=== PATIENT | female | born 1985 | race Caucasian/White ===

== ENCOUNTER 2020-11-08 19:35 | Emergency (ER) | payer SELFPAY ==
[2020-11-08 20:42] VITALS: BP 142/89; PULSE 95; RESP 18; TEMP 36.3; O2SAT 99; BMI 41.9
[2020-11-08 20:46] VITALS: PULSE 80; RESP 18; TEMP 36.3; O2SAT 99
--- NOTE | 2020-11-08 21:00 | W.ED.SKABFB ---
HPI - Skin/Abscess/Foreign Bdy General: Chief complaint: Skin/Abscess/Foreign Body Stated complaint: allergic rxn Time Seen by Provider: 11/08/20 20:48 History of Present Illness: HPI narrative: Patient is a 35-year-old female comes to the ED with right orbital swelling. Patient says she woke up this morning she had some mild swelling in her right upper and lower eyelids. Denies any eye pain or discharge. She then took some Benadryl later in the morning she went took a nap. When she woke up in the early afternoon her right eye was swollen shut. She reports having some pain more in the right eyelid and maxillary region of face is due to the swelling and tightness of the skin. She reports that yesterday she was out working in her yard and pulling up some weeds in was exposed to some poison hola. Denies any injury or trauma to face. Denies any change in lotions, detergents, soaps. Denies any new medications or eating something she has never had in the past. Associated symptoms: Deny chills, fever(s), nausea or vomiting Review of Systems Const: Denies: fever(s), chills or fatigue Eyes: Reports: other (Right periorbital swelling.); Denies: change in vision or eye discomfort ENMT: Denies: throat pain, odynophagia, nasal discharge or nasal congestion Card: Denies: chest pain, palpitations, edema, swelling of feet/ankles, dyspnea on exertion or orthopnea Resp: Denies: dyspnea, productive cough or non-productive cough GI: Denies: abdominal pain, nausea, vomiting, diarrhea, constipation or hematochezia : Denies: flank pain, dysuria or hematuria Musc: Denies: neck pain, back pain or extremity swelling Skin/Breast: Denies: rash or new lesions Neuro: Denies: headache(s), numbness in extremities or weakness in extremities Physical Exam Const: COMMON NORMALS: no acute distress, patient oriented x3 and alert GENERAL APPEARANCE: cooperative and comfortable HENMT: COMMON NORMALS: normocephalic HEAD & SCALP: normocephalic FACE & SINUS: edema on the right periorbital and maxilla MOUTH: Normal oral and palatal mucosa present THROAT: posterior oropharynx normal and uvula midline OTHER: Patient has right periorbital swelling with some edema as well in the maxillary region of face. No erythema or warmth noted. Neck/C-Spine: COMMON NORMALS: supple GENERAL: Yes normal visual inspection Resp: COMMON NORMALS: normal respiratory effort, No retractions, No use of accessory muscles and clear to auscultation bilaterally AUSCULTATION: clear to auscultation bilaterally Cardio: COMMON NORMALS: regular rate, regular rhythm, S1 normal heart sound present, S2 normal heart sound present, No gallops present (Cardio), No clicks present (Cardio), No murmurs present (Cardio) and Peripheral pulses 2+ throughout RATE: regular rate RHYTHM: regular rhythm HEART SOUNDS: S1 normal heart sound present and S2 normal heart sound present PERIPHERAL PULSES: Peripheral pulses 2+ throughout GI: COMMON NORMALS: Normal to inspection, nondistended, normoactive bowel sounds present, Soft to palpation, non-tender and no masses PALPATION: Yes Soft to palpation : COMMON NORMALS: Yes no CVA tenderness BLADDER/KIDNEY EXAM: Yes no CVA tenderness Back/Pelvis: COMMON NORMALS: no CVA tenderness Extremity: COMMON NORMALS: normal to inspection Neuro: COMMON NORMALS: patient oriented x3 and moves all extremities SENSORIUM/ORIENTATION: Yes alert Skin: GENERAL SKIN EXAM: dry skin Course Vital Signs: Vital signs: Vital Signs Temperature 97.3 F L 11/08/20 23:05 Pulse Rate 85 11/08/20 23:05 Respiratory Rate 18 11/08/20 23:05 Blood Pressure 135/76 11/08/20 23:05 Pulse Oximetry 99 11/08/20 23:05 MDM - Skin/Abscess/Foreign Bdy MDM Narrative: Medical decision making narrative: Patient is a 35-year-old female comes to the ED with right periorbital swelling. Patient said that yesterday she was working out in her yard pulling weeds and was exposed to some poison hola. She woke up with some swelling to her right eye and then it continued to get worse throughout the day. Patient was given a dose of Benadryl and Solu-Medrol while here in the ED. She started having some itching to right eye is while here in the ED. Swelling started to improve after meds. Patient was diagnosed with periorbital dermatitis likely caused by poison hola and discharged home on Medrol Dosepak and some Maxitrol eye ointment. Follow-up with PCP in 3 to 5 days for reevaluation. Return to ED precautions given. Patient understood agree with plan. Discharge Plan Discharge Patient Disposition: Home Clinical Impression: Periorbital dermatitis Condition: Stable Prescriptions: New Maxitrol 3.5 mg/g-10,000 unit/g-0.1 % ointment 1 applic ophthalmic (eye) Q8H 5 Days Qty: 3.5 RF: 0 methylprednisolone 4 mg tablets,dose pack See Rx Instructions .ROUTE .COMPLEX Qty: 21 RF: 0 Discharge Orders: Discharge ED (Routine); Ordered 11/08/20 Ordered By: Christian Mcpherson Discharge Diet: Regular Discharge Activity: Resume usual activity Patient Instructions: Contact Dermatitis (ED), Periorbital Edema Activity Restrictions/Additional Instructions: Follow-up with medical provider as directed in 3 to 5 days for reevaluation. Take medications as prescribed. Return to the ER or your medical provider if condition worsens. Please read and understand discharge instructions. Thank you for choosing [facility] for your healthcare needs today. Please realize this is an emergency room and that we are providing you with a medical screening exam and this may not be complete and all inclusive of all the testing and or work up that you may need to determine your ailment or severity of your illness. It is very important that you follow up as instructed or that you return to the Emergency Department should you have concerns or if your condition changes or worsens in any way. Stand Alone Forms: Work/School Release Coding Level of Care Code ED Hospital Administrator for Emilie Fwcole Exam Comprehensive
[2020-11-08] MEDS: diphenhydrAMINE 50 mg Capsule PO (21:18)
[2020-11-08 21:46] VITALS: PULSE 85; RESP 18; O2SAT 99
[2020-11-08 22:00] VITALS: BP 135/76; PULSE 85; RESP 18; TEMP 36.3; O2SAT 99
[2020-11-08 23:00] VITALS: BP 135/76; PULSE 85; RESP 18; TEMP 36.3; O2SAT 99
[2020-11-08] MEDS: neomycin-poly-dex Op oint 3.5 gm 1 APPLIC EYE-RIGHT (23:01)
[2020-11-08 23:05] VITALS: BP 135/76; PULSE 85; RESP 18; TEMP 36.3; O2SAT 99
== END 2020-11-08 23:06 | disposition home or self-care (01) ==
PROVIDERS: Emergency Provider Physician Assistant
DX: L30.8 Other specified dermatitis (principal)
CPT/HCPCS: 96372; 99283; J2930; Q0163

== ENCOUNTER 2020-11-09 10:35 | Inpatient (IN) | payer SELFPAY ==
[2020-11-09] VITALS (10 sets, daily range): BP systolic 105–139; BP diastolic 52–96; PULSE 66–87; RESP 16–18; TEMP 36.6–36.9; O2SAT 93–98; BMI 41.9
--- NOTE | 2020-11-09 11:04 | CTR_ITS ---
PROCEDURE INFORMATION: Exam: CT Maxillofacial With Contrast Exam date and time: 11/09/2020 11:04 AM Age: 35 years old Clinical indication: Mass, lump, or swelling; Maxilla; Additional info: R periorbital/facial swelling redness TECHNIQUE: Imaging protocol: Computed tomography images of the face with intravenous contrast. Radiation optimization: All CT scans at this facility use at least one of these dose optimization techniques: automated exposure control; mA and/or kV adjustment per patient size (includes targeted exams where dose is matched to clinical indication); or iterative reconstruction. Contrast material: OMNI 300; Contrast volume: 95 ml; Contrast route: INTRAVENOUS (IV); COMPARISON: No relevant prior studies available. RADIATION DOSE METRICS: Total DLP (mGy-cm): 784.78 FINDINGS: Orbital cavity: Severe right orbital preseptal inflammation/cellulitis with no obvious postseptal inflammation. Bones/joints: No acute fracture. Paranasal sinuses: Normal. No air-fluid levels. Soft tissues: Soft tissue swelling over the right cheek, orbit and forehead consistent with infectious process. CT/CT facial bones w con [id number] IMPRESSION: 1. Soft tissue swelling over the right cheek, orbit and forehead consistent with infectious process. 2. Severe right orbital preseptal inflammation/cellulitis with no obvious postseptal inflammation. Radiation Dose CTDIVOL = (mGy): DLP = 784.78 (mGy-cm)
--- NOTE | 2020-11-09 11:13 | ED_ITS ---
Documented by User: BELA Polanco 11/09/20 15:00 HPI - Skin/Abscess/Foreign Bdy General: Chief complaint: General Medical Stated complaint: r eye swelling/seen here yesterday Time Seen by Provider: 11/09/20 10:37 Source: patient Mode of arrival: ambulatory Limitations: no limitations History of Present Illness: HPI narrative: Patient is a 35-year-old female who presents to ED today with a complaint of right-sided facial swelling. Patient was seen here yesterday for same complaint and treated with steroids for concerns of plant dermatitis. Patient tells me when she woke up this morning she noticed her face was even more so swollen so decided to come back for re- evaluation. Patient states she has no known exposure to poison hola/oak/sumac but was pulling weeds in the garden. She states her right eye is swollen shut. She does not complain of severe periorbital pain and does not complain of much pain with EOMs. She does have eye discomfort stating it feels like her eyelashes are scratching her eye. She has not been running fever. Patient is not a diabetic. Onset (ago): day(s) Tetanus up to date: yes Location: face Severity: moderate Pain Consistency: constant Relieving factors: none Exacerbating factors: none Context: none Associated symptoms: Reports no associated symptoms; Deny chills, fever(s), nausea or vomiting Treatments prior to arrival: corticosteroid Review of Systems Const: Denies: fever(s), chills, body aches, change in appetite, change in weight, fatigue or malaise Eyes: Reports: other (R periorbital swelling; cannot open) ENMT: Denies: throat pain, odynophagia, mouth pain, swelling of lips/tongue, oral sores, dental pain, ear or mastoid pain, ear discharge, nasal discharge or nasal congestion Card: Denies: chest pain Resp: Denies: dyspnea GI: Denies: nausea or vomiting Musc: Denies: neck pain Skin/Breast: Denies: rash Neuro: Denies: headache(s), dizziness, confusion or Slurred speech present [facility] PFSH: Social History (Updated 11/09/20 @ 17:44 by Jacquelyn Amaya MD) Smoking and tobacco status: never smoked Alcohol intake: never Substance/Drug Use: never Physical Exam Const: COMMON NORMALS: no acute distress, patient oriented x3, no limitations and alert GENERAL APPEARANCE: cooperative NUTRITIONAL APPEARANCE: overweight ORIENTATION/CONSCIOUSNESS: Yes awake, Yes oriented to person, Yes oriented to place and Yes oriented to time HENMT: COMMON NORMALS: normocephalic, atraumatic, hearing grossly normal bilaterally, external ears normal, EAC's normal, TM's normal bilaterally, Normal external nose present, Normal nasal mucous membranes and turbinates present, moist oral mucous membranes, oropharynx normal, dentition normal and gingiva normal HEAD & SCALP: normal to inspection, normocephalic and atraumatic FACE & SINUS: erythema, edema, Facial tenderness on exam of face and sinuses and other (see below) NOSE: Normal external nose present and Normal nasal mucous membranes and turbinates present EXTERNAL EAR: Yes external ears normal EXTERNAL AUDITORY CANAL: EAC's normal TYMPANIC MEMBRANE: TM's normal bilaterally MOUTH: Normal oral and palatal mucosa present, lip normal and tongue normal TEETH & GINGIVA: Yes fair dentition THROAT: posterior oropharynx normal, tonsils normal and uvula midline OTHER: pt has significant R periorbital edema-cannot open eye and I am not able to physical pry open to evaluate globe; she has erythema/warmth throughout R forehead, maxillary and mandibular regions and nose; erythema is starting to spread to L side of her face Neuro: COMMON NORMALS: patient oriented x3 SENSORIUM/ORIENTATION: Yes alert, Yes oriented to person, Yes oriented to place and Yes oriented to time Course Consultations: Consultation #1: Dr. Damon-came and evaluated patient and stated that he does not feel comfortable taking patient stating if she worsened then she would require ophthalmology. I argued that at this time patient's infection is localized to the preseptal tissues and a transfer at this time would be inappropriate. He stated if one of the other hospitalists felt comfortable taking her then they could but he would not accept admission. Consultation #2: Dr. Amaya-will evaluate patient and admit Vital Signs: Vital signs: Vital Signs Temperature 97.9 F 11/11/20 04:00 Pulse Rate 52 L 11/11/20 04:00 Respiratory Rate 16 11/11/20 04:00 Blood Pressure 124/83 11/11/20 04:00 Pulse Oximetry 95 11/11/20 04:00 MDM - Skin/Abscess/Foreign Bdy MDM Narrative: Medical decision making narrative: Patient has severe preseptal cellulitis. She has facial cellulitis affecting approximately 60% of her face. I think patient would benefit from coming inpatient for IV antibiotics. Dr. Reyez has seen patient and agrees with plan. Lab Data: Labs: Lab Results 11/09/20 11/09/20 11/09/20 Range/Units 11:18 11:18 11:18 WBC 11.2 H (4.0-10.0) 10^3/ uL RBC 4.42 (4.1-5.3) 10^6/u L Hgb 14.1 (11.5-15.3) g/dL Hct 40.1 (37.0-47.0) % MCV 90.7 (81-99) fL MCH 31.9 (28.0-34.0) pg MCHC 35.2 (30.0-36.0) g/dL RDW 11.6 L (12.1-15.1) % Plt Count 262 (130-400) 10^3/c mm MPV 9.5 (7.4-10.4) fL Neut % (Auto) 94.6 % Lymph % (Auto) 3.5 % [place] % (Auto) 1.5 % Eos % (Auto) 0.0 % Baso % (Auto) 0.1 % Neut # (Auto) 10.60 H (1.8-7.7) 10^3/u L Lymph # (Auto) 0.4 L (0.8-4.8) 10^3/u L [place] # (Auto) 0.2 (0.2-0.9) 10^3/u L Eos # (Auto) 0.0 (0.0-0.8) 10^3/u L Baso # (Auto) 0.0 (0.0-0.1) 10^3/u L Nucleated RBC % (a uto) 0 % Nucleated RBCs # 0.0 /100WBC ESR 23 H (0-15) mm/hr Sodium 136 (136-145) mmol/L Potassium 3.9 (3.5-5.1) mmol/L Chloride 102 (98-107) mmol/L Carbon Dioxide 24 (22-29) mmol/L Anion Gap 13.9 (5-19) BUN 11 (6-20) mg/dL Creatinine 0.5 (0.5-0.9) mg/dL GFR Calculation 138.8 H (90-130) mL/min Glucose 155 H (65-115) mg/dL Calculated Osmolal ity 285 (285-295) mOsm/k g Lactic Acid (0.5-2.2) mmol/L Calcium 8.7 (8.5-10.5) mg/dL Total Bilirubin 0.4 (0.15-1.2) mg/dL AST 16 (0-32) U/L ALT 23 (0-33) U/L Alkaline Phosphata se 82 (35-105) IU/L C-Reactive Protein 36.9 H (0.0-4.9) mg/L Total Protein 6.8 (6.6-8.7) g/dL Albumin 4.0 (3.5-5.2) g/dL Globulin 2.8 (1.3-4.6) g/dL Procalcitonin (0-0.5) ng/mL HCG, Qual (Negative) 11/09/20 11/09/20 11/09/20 Range/Units 11:18 11:18 11:18 WBC (4.0-10.0) 10^3/ uL RBC (4.1-5.3) 10^6/u L Hgb (11.5-15.3) g/dL Hct (37.0-47.0) % MCV (81-99) fL MCH (28.0-34.0) pg MCHC (30.0-36.0) g/dL RDW (12.1-15.1) % Plt Count (130-400) 10^3/c mm MPV (7.4-10.4) fL Neut % (Auto) % Lymph % (Auto) % [place] % (Auto) % Eos % (Auto) % Baso % (Auto) % Neut # (Auto) (1.8-7.7) 10^3/u L Lymph # (Auto) (0.8-4.8) 10^3/u L [place] # (Auto) (0.2-0.9) 10^3/u L Eos # (Auto) (0.0-0.8) 10^3/u L Baso # (Auto) (0.0-0.1) 10^3/u L Nucleated RBC % (a uto) % Nucleated RBCs # /100WBC ESR (0-15) mm/hr Sodium (136-145) mmol/L Potassium (3.5-5.1) mmol/L Chloride (98-107) mmol/L Carbon Dioxide (22-29) mmol/L Anion Gap (5-19) BUN (6-20) mg/dL Creatinine (0.5-0.9) mg/dL GFR Calculation (90-130) mL/min Glucose (65-115) mg/dL Calculated Osmolal ity (285-295) mOsm/k g Lactic Acid 1.3 (0.5-2.2) mmol/L Calcium (8.5-10.5) mg/dL Total Bilirubin (0.15-1.2) mg/dL AST (0-32) U/L ALT (0-33) U/L Alkaline Phosphata se (35-105) IU/L C-Reactive Protein (0.0-4.9) mg/L Total Protein (6.6-8.7) g/dL Albumin (3.5-5.2) g/dL Globulin (1.3-4.6) g/dL Procalcitonin 0.05 (0-0.5) ng/mL HCG, Qual Negative (Negative) Imaging Data^: CT facial: Radiologist's impression: [address] [id number] Scan ReportSigned Patient: Katherine Harley #: [id number]: 1985Acct#:[id number]/Sex: 35 / FADM Date: 11/09/20Loc: ERRoom/Bed :Attending Dr: Ordering Provider/Ordering MD: Christal Mcneal Date of Service: 11/09/20 Procedure(s): CT facial bones w [place] [address] Accession Number(s): [id number] Report Number: [id number] PROCEDURE INFORMATION: Exam: CT Maxillofacial With Contrast Exam date and time: 11/09/2020 11:04 AM Age: 35 years old Clinical indication: Mass, lump, or swelling; Maxilla; Additional info: R periorbital/facial swelling redness TECHNIQUE: Imaging protocol: Computed tomography images of the face with intravenous contrast. Radiation optimization: All CT scans at this facility use at least one of these dose optimization techniques: automated exposure control; mA and/or kV adjustment per patient size (includes targeted exams where dose is matched to clinical indication); or iterative reconstruction. Contrast material: OMNI 300; Contrast volume: 95 ml; Contrast route: INTRAVENOUS (IV); COMPARISON: No relevant prior studies available. RADIATION DOSE METRICS: Total DLP (mGy-cm): 784.78 FINDINGS: Orbital cavity: Severe right orbital preseptal inflammation/cellulitis with no obvious postseptal inflammation. Bones/joints: No acute fracture. Paranasal sinuses: Normal. No air-fluid levels. Soft tissues: Soft tissue swelling over the right cheek, orbit and forehead consistent with infectious process. CT/CT facial bones w con [id number] IMPRESSION: 1. Soft tissue swelling over the right cheek, orbit and forehead consistent with infectious process. 2. Severe right orbital preseptal inflammation/cellulitis with no obvious postseptal inflammation. Radiation Dose CTDIVOL = (mGy): DLP = 784.78 (mGy-cm) Dictated By:Walter Ramos MDSigned By:Walter Ramos MDSigned Date/Time:11/09/201327DD/ 26 Discharge Plan Discharge Patient Disposition: Admitted As Inpatient Admit Provider: Jacquelyn Amaya Clinical Impression: Preseptal cellulitis of right eye, Cellulitis of face Condition: Stable Coding Level of Care Code ED Chemical Dependency Counselor for Chg Fwd Exam Expanded Problem Focused Documented by User: Demetrio Reyez DO 11/11/20 07:16 HPI - Skin/Abscess/Foreign Bdy General: Chief complaint: General Medical Stated complaint: r eye swelling/seen here yesterday Time Seen by Provider: 11/09/20 10:37 PFSH ED PFSH: Social History (Updated 11/09/20 @ 17:44 by Jacquelyn Amaya MD) Smoking and tobacco status: never smoked Alcohol intake: never Substance/Drug Use: never Course Vital Signs: Vital signs: Vital Signs Temperature 97.9 F 11/11/20 04:00 Pulse Rate 52 L 11/11/20 04:00 Respiratory Rate 16 11/11/20 04:00 Blood Pressure 124/83 11/11/20 04:00 Pulse Oximetry 95 11/11/20 04:00 MDM - Skin/Abscess/Foreign Bdy MDM Narrative: Medical decision making narrative: Reviewed the case and the imaging with BELA Polanco. Agree with assessment and plan patient will be admitted to Dr. Franks. Lab Data: Labs: Lab Results 11/09/20 11/09/20 11/09/20 Range/Units 11:18 11:18 11:18 WBC 11.2 H (4.0-10.0) 10^3/ uL RBC 4.42 (4.1-5.3) 10^6/u L Hgb 14.1 (11.5-15.3) g/dL Hct 40.1 (37.0-47.0) % MCV 90.7 (81-99) fL MCH 31.9 (28.0-34.0) pg MCHC 35.2 (30.0-36.0) g/dL RDW 11.6 L (12.1-15.1) % Plt Count 262 (130-400) 10^3/c mm MPV 9.5 (7.4-10.4) fL Neut % (Auto) 94.6 % Lymph % (Auto) 3.5 % [place] % (Auto) 1.5 % Eos % (Auto) 0.0 % Baso % (Auto) 0.1 % Neut # (Auto) 10.60 H (1.8-7.7) 10^3/u L Lymph # (Auto) 0.4 L (0.8-4.8) 10^3/u L [place] # (Auto) 0.2 (0.2-0.9) 10^3/u L Eos # (Auto) 0.0 (0.0-0.8) 10^3/u L Baso # (Auto) 0.0 (0.0-0.1) 10^3/u L Nucleated RBC % (a uto) 0 % Nucleated RBCs # 0.0 /100WBC ESR 23 H (0-15) mm/hr Sodium 136 (136-145) mmol/L Potassium 3.9 (3.5-5.1) mmol/L Chloride 102 (98-107) mmol/L Carbon Dioxide 24 (22-29) mmol/L Anion Gap 13.9 (5-19) BUN 11 (6-20) mg/dL Creatinine 0.5 (0.5-0.9) mg/dL GFR Calculation 138.8 H (90-130) mL/min Glucose 155 H (65-115) mg/dL Calculated Osmolal ity 285 (285-295) mOsm/k g Lactic Acid (0.5-2.2) mmol/L Calcium 8.7 (8.5-10.5) mg/dL Total Bilirubin 0.4 (0.15-1.2) mg/dL AST 16 (0-32) U/L ALT 23 (0-33) U/L Alkaline Phosphata se 82 (35-105) IU/L C-Reactive Protein 36.9 H (0.0-4.9) mg/L Total Protein 6.8 (6.6-8.7) g/dL Albumin 4.0 (3.5-5.2) g/dL Globulin 2.8 (1.3-4.6) g/dL Procalcitonin (0-0.5) ng/mL HCG, Qual (Negative) 11/09/20 11/09/20 11/09/20 Range/Units 11:18 11:18 11:18 WBC (4.0-10.0) 10^3/ uL RBC (4.1-5.3) 10^6/u L Hgb (11.5-15.3) g/dL Hct (37.0-47.0) % MCV (81-99) fL MCH (28.0-34.0) pg MCHC (30.0-36.0) g/dL RDW (12.1-15.1) % Plt Count (130-400) 10^3/c mm MPV (7.4-10.4) fL Neut % (Auto) % Lymph % (Auto) % [place] % (Auto) % Eos % (Auto) % Baso % (Auto) % Neut # (Auto) (1.8-7.7) 10^3/u L Lymph # (Auto) (0.8-4.8) 10^3/u L [place] # (Auto) (0.2-0.9) 10^3/u L Eos # (Auto) (0.0-0.8) 10^3/u L Baso # (Auto) (0.0-0.1) 10^3/u L Nucleated RBC % (a uto) % Nucleated RBCs # /100WBC ESR (0-15) mm/hr Sodium (136-145) mmol/L Potassium (3.5-5.1) mmol/L Chloride (98-107) mmol/L Carbon Dioxide (22-29) mmol/L Anion Gap (5-19) BUN (6-20) mg/dL Creatinine (0.5-0.9) mg/dL GFR Calculation (90-130) mL/min Glucose (65-115) mg/dL Calculated Osmolal ity (285-295) mOsm/k g Lactic Acid 1.3 (0.5-2.2) mmol/L Calcium (8.5-10.5) mg/dL Total Bilirubin (0.15-1.2) mg/dL AST (0-32) U/L ALT (0-33) U/L Alkaline Phosphata se (35-105) IU/L C-Reactive Protein (0.0-4.9) mg/L Total Protein (6.6-8.7) g/dL Albumin (3.5-5.2) g/dL Globulin (1.3-4.6) g/dL Procalcitonin 0.05 (0-0.5) ng/mL HCG, Qual Negative (Negative) Discharge Plan Discharge Patient Disposition: Admitted As Inpatient Admit Provider: Jacquelyn Amaya Clinical Impression: Preseptal cellulitis of right eye, Cellulitis of face Condition: Stable Coding Level of Care Code ED Chemical Dependency Counselor for Chg Fwd Exam Expanded Problem Focused
[2020-11-09 11:28] LABS: Basophils % 0.1 %; Hematocrit 40.1 % (37.0-47.0); Hemoglobin 14.1 g/dL (11.5-15.3); Lymphocytes # 0.4 10^3/uL (0.8-4.8); Lymphocytes % 3.5 %; Mean Corpuscular HGB Conc 35.2 g/dL (30.0-36.0); Mean Corpuscular Hemoglobin 31.9 pg (28.0-34.0); Mean Corpuscular Volume 90.7 fL (81-99); Mean Platelet Volume 9.5 fL (7.4-10.4); Monocytes # 0.2 10^3/uL (0.2-0.9); Monocytes % 1.5 %; Neutrophils % 94.6 %; Nucleated Red Blood Cells % 0 %; Platelet Count 262 10^3/cmm (130-400); Red Blood Count 4.42 10^6/uL (4.1-5.3); Red Cell Distribution Width 11.6 % (12.1-15.1); White Blood Count 11.2 10^3/uL (4.0-10.0)
[2020-11-09] MEDS: cefTRIAXone 2,000 MG in sodium chloride 0.9% (plus) 50 ML 100 MG IV (11:30)
[2020-11-09] MEDS: vancomycin 1,000 MG in sodium chloride 0.9% 250 ML 250 MG IV (11:32)
--- NOTE | 2020-11-09 11:33 | PC.NURSE ---
patient c/o right eye swollen getting worse. unable to open right eye. c/o pain 09/07, tolerated pain at this time
[2020-11-09 11:41] LABS: HCG, Serum Qual Negative (Negative)
[2020-11-09 11:42] LABS: Alanine Aminotransferase 23 U/L (0-33); Alkaline Phosphatase 82 IU/L (35-105); Aspartate Amino Transferase 16 U/L (0-32); Blood Urea Nitrogen 11 mg/dL (6-20); C Reactive Protein 36.9 mg/L (0.0-4.9); Calcium 8.7 mg/dL (8.5-10.5); Carbon Dioxide 24 mmol/L (22-29); Chloride 102 mmol/L (98-107); Globulin 2.8 g/dL (1.3-4.6); Glomerular Filtration Rate 138.8 mL/min (90-130); Glucose 155 mg/dL (65-115); Osmolality Calculated 285 mOsm/kg (285-295); Sodium 136 mmol/L (136-145); Total Bilirubin 0.4 mg/dL (0.15-1.2); Total Protein 6.8 g/dL (6.6-8.7)
[2020-11-09 11:43] LABS: Lactic Sepsis W/Reflex 1.3 mmol/L (0.5-2.2)
[2020-11-09 11:44] LABS: Anion Gap 13.9 (5-19); Potassium 3.9 mmol/L (3.5-5.1)
--- NOTE | 2020-11-09 11:48 | PC.PHAR ---
PT STATES SHE DOESN'T TAKE ANY PRESCRIPTIONS DAILY, AND NOTHING OVER THE COUNTER DAILY. SHE DID GET A STEROID SHOT AND BENADRYL HERE AT THE ER LAST NIGHT.
[2020-11-09 12:16] LABS: Erythrocyte Sedimentation Rate 23 mm/hr (0-15)
[2020-11-09] MEDS: iohexol 300 mg/mL 100 mL Btl IV (12:28)
--- NOTE | 2020-11-09 15:14 | PC.NURSE ---
patient c/o around eye pain, 5/10, tolerated pain at this time
--- NOTE | 2020-11-09 15:27 | PM.HP ---
Providers/Chief Complaint Admitting Physician: Jacquelyn Amaya MD Chief Complaint: r eye swelling/seen here yesterday History of Present Illness 35-year-old female with no significant past medical history who is presenting to ER with facial swelling. Patients symptoms started after on after working on her yard with mild right sided orbital swelling. Concern for possible poison IV exposure. This rapidly progressed. She was not able to open her eyelids. She was seen in ER on during which time she was suspected to allergic reaction. She was given Benadryl and solu-medrol Iv and discharged on maxitrol eye drops plus medrol dose pack. Today she returned to ER noted facial swelling and redness which spread to her jaw line on right and appeared to be over nasal bridge. Stated this was feeling hot to the touch. Denied any documented fevers. She was not able determine any visual deficits however denied any pain with ocular movements. Was also complaining of facial pruritis. Laboratory work upon arrival showed a WBC of 11.2, hemoglobin 14.1, hematocrit 40.1 and a platelet count of 262. ESR 23. Sodium 136, potassium 3.9, chloride 102, bicarb 24, BUN 11 and creatinine of 0.5. Glucose was 155. Procalcitonin was negative a 0.05. Imaging studies included a CT maxillofacial which showed soft tissue swelling over the right cheek orbit and forehead consistent with infectious process, severe right orbital preseptal inflammation/cellulitis with no obvious postseptal inflammation. No abscess was noted. Patient was started on vancomycin and Rocephin 2 g IV daily and subsequently admitted to the hospital. She was also started on solu-medrol 40 mg IV q8hr. Review of Systems General: Reports: 10 or more systems reviewed and unremarkable except in HPI and below Medications/Allergies Home Medications Medication Instructions Recorded Confirmed Last Taken Type No Known Home Medications 11/09/20 11/09/20 Unknown History Allergies Allergy/AdvReac Type Severity Reaction Status Date / Time meperidine [From Demerol] Allergy ADR-Nausea Verified 11/08/20 20:41 promethazine [From Phenergan] Allergy ADR-Halluci Verified 11/08/20 20:41 nating PFSH Acute PFSH: Social History (Updated 11/09/20 @ 17:44 by Jacquelyn Amaya MD) Smoking and tobacco status: never smoked Alcohol intake: never Substance/Drug Use: never Vitals/I&O/Wt Last Vital Signs Temp 98.3 F 11/09/20 10:49 Pulse 75 11/09/20 15:12 Resp 16 11/09/20 15:12 BP 118/73 11/09/20 15:12 Pulse Ox 97 11/09/20 15:12 Weight last 48 hrs Weight 117.934 kg Physical Exam Narrative: EXAM NARRATIVE: General ; Alert awake oriented x 3 HEENT : no lingular swelling, Left eye - no pain with movement, no conjunctival involvement. See attached pic below [facility] : RRR Chest : CTABL Abd; Soft NT, ND Ext : no edema Skin: NARRATIVE SKIN EXAM: Images obtain after consent - signed in ER Data : 11/09/20 11:18 11/09/20 11:18 Micro: Microbiology 11/09/20 11:32 Blood Culture - Preliminary Blood SPECIMEN COLLECTED 11/09/20 11:18 Blood Culture - Preliminary Blood SPECIMEN COLLECTED A&P Assessment and plan (1) Preseptal cellulitis of right eye: Status: Acute Preseptal Cellulitis CT Face- as noted in HPI, no abscess, or orbital involvement. Blood culture x 2 sent Continue vancomycin pharmacy to dose Continue Rocephin 2 g IV daily WBC -11- CBC in am Procalcitonin - negative - possible allergic - will start solu-medrol 40 mg IV Q8hr, Loratadine 10 mg PO daily, Benadryl PRN , Pepcid 20 mg PO BID. D/w Optho credit and collection manager - monitor for ocular pain, proptosis, chemises Tylenol prn for fever Pain control DVT ppx Ambulatory - low risk Attestations Medical Necessity Statement*: Anticipate over 2 midnight stay in [facility] for eval and treatment of cellulitis req iv abx Time Spent in Patient Care: Greater than 35 minutes (>than 50% of time spent in counselling and/or direct pt care on unit). Coding Level of Care Code Acute Secured Entrance Monitor for Emilie Michelle Diagnoses Preseptal cellulitis of right eye L03.213
[2020-11-09 15:52] LABS: Procalcitonin 0.05 ng/mL (0-0.5)
--- NOTE | 2020-11-09 16:44 | PC.NURSE ---
attempted to call report, call back pending
--- NOTE | 2020-11-09 17:30 | PC.NURSE ---
I am unable to see patient's right eye because it is swollen shut.
[2020-11-09] MEDS: sodium chloride 0.9% 1,000 ML 75 ML IV (17:50)
[2020-11-09] MEDS: famotidine 20 mg Tablet PO (17:59)
[2020-11-09] MEDS: HYDROcodone-acetaminophen 5-325 mg Tablet 1 TAB PO (17:59)
[2020-11-09] MEDS: diphenhydrAMINE 25 mg Capsule PO (18:00)
--- NOTE | 2020-11-09 18:52 | PC.NURSE ---
Report to Andrés DEL CID at this time.
[2020-11-09] MEDS: vancomycin 1,500 MG/300 ML PIGGYBACK 200 MG IV (21:24)
[2020-11-10] VITALS (8 sets, daily range): BP systolic 108–134; BP diastolic 70–85; PULSE 60–70; RESP 16–18; TEMP 36.6–37.1; O2SAT 92–96
[2020-11-10] MEDS: vancomycin 1,500 MG/300 ML PIGGYBACK 200 MG IV ×3 (04:01→20:32)
[2020-11-10 05:54] LABS: Basophils % 0.2 %; Hematocrit 37.4 % (37.0-47.0); Hemoglobin 12.6 g/dL (11.5-15.3); Lymphocytes # 0.7 10^3/uL (0.8-4.8); Lymphocytes % 4.4 %; Mean Corpuscular HGB Conc 33.7 g/dL (30.0-36.0); Mean Corpuscular Hemoglobin 31.3 pg (28.0-34.0); Mean Corpuscular Volume 92.8 fL (81-99); Mean Platelet Volume 9.6 fL (7.4-10.4); Monocytes # 0.3 10^3/uL (0.2-0.9); Monocytes % 2.2 %; Neutrophils # 14.28 10^3/uL (1.8-7.7); Neutrophils % 92.7 %; Nucleated Red Blood Cells % 0 %; Platelet Count 273 10^3/cmm (130-400); Red Blood Count 4.03 10^6/uL (4.1-5.3); Red Cell Distribution Width 11.8 % (12.1-15.1); White Blood Count 15.4 10^3/uL (4.0-10.0)
[2020-11-10 06:13] LABS: Lactic Sepsis W/Reflex 0.8 mmol/L (0.5-2.2)
[2020-11-10 06:14] LABS: Alanine Aminotransferase 18 U/L (0-33); Albumin Level 3.8 g/dL (3.5-5.2); Alkaline Phosphatase 68 IU/L (35-105); Anion Gap 12.2 (5-19); Aspartate Amino Transferase 11 U/L (0-32); Blood Urea Nitrogen 12 mg/dL (6-20); Calcium 8.3 mg/dL (8.5-10.5); Carbon Dioxide 22 mmol/L (22-29); Chloride 105 mmol/L (98-107); Globulin 2.4 g/dL (1.3-4.6); Glomerular Filtration Rate 138.8 mL/min (90-130); Glucose 142 mg/dL (65-115); Magnesium 1.9 mg/dL (1.7-2.3); Osmolality Calculated 282 mOsm/kg (285-295); Potassium 4.2 mmol/L (3.5-5.1); Sodium 135 mmol/L (136-145); Total Bilirubin 0.2 mg/dL (0.15-1.2); Total Protein 6.2 g/dL (6.6-8.7)
[2020-11-10] MEDS: famotidine 20 mg Tablet PO ×2 (09:36→18:14)
[2020-11-10] MEDS: sodium chloride 0.9% 1,000 ML 75 ML IV ×2 (09:36→22:44)
[2020-11-10] MEDS: loratadine 10 mg Tablet PO (09:36)
[2020-11-10] MEDS: cefTRIAXone 2,000 MG in sodium chloride 0.9% (plus) 50 ML 100 MG IV (09:37)
[2020-11-10] MEDS: enoxaparin 40 mg/0.4 mL Syringe SUBCUT (14:54)
--- NOTE | 2020-11-10 15:42 | PM.PN ---
Subjective Subjective: Interval history: No fever or chills, no nausea or vomiting. left facial erythema and swelling improved Able to open eyelids No eye pain Vitals/I&O/Wt Last Vital Signs Temp 98.2 F 11/10/20 12:00 Pulse 62 11/10/20 12:00 Resp 18 11/10/20 12:00 BP 121/82 11/10/20 12:00 Pulse Ox 94 11/10/20 12:00 11/10/20 11/10/20 11/10/20 06:59 14:59 22:59 Intake Total 1000 / 1600 1370 / 1370 Output Total 200 / 200 Balance 800 / 1400 1370 / 1370 Weight last 48 hrs Weight 117.435 kg Weight 117.934 kg Physical Exam Narrative: EXAM NARRATIVE: General ; Alert awake oriented x 3 HEENT : no lingular swelling, Left eye - no pain with movement, no conjunctival involvement. See attached pic below - Improved today. [facility] : RRR Chest : CTABL Abd; Soft NT, ND Ext : no edema Skin: NARRATIVE SKIN EXAM: Images obtain after consent - signed in ER Data : 11/10/20 05:31 11/10/20 05:31 Micro: Microbiology 11/09/20 11:32 Blood Culture - Preliminary Blood NEGATIVE TO DATE 11/09/20 11:18 Blood Culture - Preliminary Blood NEGATIVE TO DATE A&P Assessment and plan (1) Preseptal cellulitis of right eye: Status: Acute Preseptal Cellulitis CT Face- no abscess, or orbital involvement - preseptal Blood culture x 2 - NGTD Continue vancomycin pharmacy to dose Continue Rocephin 2 g IV daily WBC -11- increased to 15 - likley increased due to steroids Procalcitonin - negative - possible allergic - will start solu-medrol 40 mg IV Q8hr, Loratadine 10 mg PO daily, Benadryl PRN , Pepcid 20 mg PO BID. - wean steroids as patients improves. D/w Optho vp information technology - monitor for ocular pain, proptosis, chemosis Tylenol prn for fever Pain control DVT ppx Ambulatory - low risk Attestations Medical Necessity Statement*: Will require further hospitalizaiton for management of facial cellulitis on IV abx. Time Spent in Patient Care: Greater than 35 minutes (>than 50% of time spent in counselling and/or direct pt care on unit). Coding Level of Care Code Acute Cloth Booker for Chg Fwd Diagnoses Preseptal cellulitis of right eye L03.213
[2020-11-10 19:51] LABS: Vancomycin Trough 11.7 ug/mL (10-15)
[2020-11-11] VITALS: BP 120/80; PULSE 53; RESP 17; TEMP 36.4; O2SAT 95
[2020-11-11] MEDS: diphenhydrAMINE 25 mg Capsule PO (01:37)
[2020-11-11 04:00] VITALS: BP 124/83; PULSE 52; RESP 16; TEMP 36.6; O2SAT 95
[2020-11-11] MEDS: vancomycin 1,500 MG/300 ML PIGGYBACK 200 MG IV ×3 (04:13→20:57)
[2020-11-11 07:01] LABS: Basophils % 0.2 %; Hematocrit 34.8 % (37.0-47.0); Hemoglobin 11.6 g/dL (11.5-15.3); Lymphocytes # 0.9 10^3/uL (0.8-4.8); Lymphocytes % 6.7 %; Mean Corpuscular HGB Conc 33.3 g/dL (30.0-36.0); Mean Corpuscular Hemoglobin 31.4 pg (28.0-34.0); Mean Corpuscular Volume 94.1 fL (81-99); Monocytes # 0.4 10^3/uL (0.2-0.9); Monocytes % 2.9 %; Neutrophils # 11.74 10^3/uL (1.8-7.7); Neutrophils % 89.5 %; Nucleated Red Blood Cells % 0 %; Platelet Count 271 10^3/cmm (130-400); Red Cell Distribution Width 11.9 % (12.1-15.1); White Blood Count 13.1 10^3/uL (4.0-10.0)
[2020-11-11 07:13] LABS: Alanine Aminotransferase 14 U/L (0-33); Albumin Level 3.7 g/dL (3.5-5.2); Alkaline Phosphatase 58 IU/L (35-105); Anion Gap 13.1 (5-19); Aspartate Amino Transferase 8 U/L (0-32); Blood Urea Nitrogen 9 mg/dL (6-20); Calcium 8.3 mg/dL (8.5-10.5); Carbon Dioxide 24 mmol/L (22-29); Chloride 107 mmol/L (98-107); Globulin 2.4 g/dL (1.3-4.6); Glomerular Filtration Rate 112.5 mL/min (90-130); Glucose 152 mg/dL (65-115); Osmolality Calculated 292 mOsm/kg (285-295); Potassium 4.1 mmol/L (3.5-5.1); Sodium 140 mmol/L (136-145); Total Bilirubin 0.2 mg/dL (0.15-1.2); Total Protein 6.1 g/dL (6.6-8.7)
[2020-11-11] MEDS: cefTRIAXone 2,000 MG in sodium chloride 0.9% (plus) 50 ML 100 MG IV (09:11)
[2020-11-11] MEDS: loratadine 10 mg Tablet PO (09:12)
[2020-11-11] MEDS: famotidine 20 mg Tablet PO ×2 (09:12→18:36)
[2020-11-11] MEDS: sodium chloride 0.9% 1,000 ML 75 ML IV (12:40)
--- NOTE | 2020-11-11 13:17 | P.PN_ITS ---
Subjective Subjective: Interval history: says eye is much better. doesn't know source. not ambulating Medications: Reviewed: Yes Vitals/I&O/Wt Last Vital Signs Temp 97.9 F 11/11/20 04:00 Pulse 52 L 11/11/20 04:00 Resp 16 11/11/20 04:00 BP 124/83 11/11/20 04:00 Pulse Ox 95 11/11/20 04:00 11/10/20 11/11/20 11/11/20 22:59 06:59 14:59 Intake Total 1538 / 2908 300 / 3208 1290 / 1290 Balance 1538 / 2908 300 / 3208 1290 / 1290 Weight last 48 hrs Weight 120.656 kg Weight 117.435 kg Physical Exam Narrative: EXAM NARRATIVE: obese young women NAD right eye swollen with induration and deyanira pus noted under skin medially. She states that it drained a bit yesterday. can see clear sclera and good vision h RRR without murmur L clear with w/r/r A soft nt/nd nl BS, obese E no edema Data : 11/11/20 06:11 11/11/20 06:11 Micro: Microbiology 11/09/20 11:32 Blood Culture - Preliminary Blood NEGATIVE TO DATE 11/09/20 11:18 Blood Culture - Preliminary Blood NEGATIVE TO DATE A&P Assessment and plan (1) Preseptal cellulitis of right eye: change rocephin to zosyn and cont vanco may ambulate in dowling Status: Acute Attestations Medical Necessity Statement*: very concerned regarding location of infection and obvious pus. Will continue abx anther 24-48 hours. Coding Level of Care Code Acute [place] Auditor for Emilie Michelle Diagnoses Preseptal cellulitis of right eye L03.213
[2020-11-11] MEDS: piperacillin-tazobactam 4.5 GM in sodium chloride 0.9% (plus) 50 ML IV ×2 (15:55→23:13)
[2020-11-11 16:21] VITALS: BP 123/85; PULSE 53; RESP 14; TEMP 36.4; O2SAT 94
[2020-11-11] MEDS: enoxaparin 40 mg/0.4 mL Syringe SUBCUT (16:56)
[2020-11-11 20:00] VITALS: BP 111/67; PULSE 59; RESP 20; TEMP 36.7; O2SAT 94
[2020-11-12] VITALS: BP 112/67; PULSE 48; RESP 17; TEMP 36.5; O2SAT 94
[2020-11-12] MEDS: diphenhydrAMINE 25 mg Capsule PO ×2 (01:44→09:10)
[2020-11-12 04:00] VITALS: BP 130/72; PULSE 42; RESP 18; TEMP 36.4; O2SAT 93
[2020-11-12] MEDS: piperacillin-tazobactam 4.5 GM in sodium chloride 0.9% (plus) 50 ML IV ×3 (04:12→15:33)
[2020-11-12] MEDS: vancomycin 1,500 MG/300 ML PIGGYBACK 200 MG IV ×3 (05:10→21:23)
[2020-11-12] MEDS: sodium chloride 0.9% 1,000 ML 15 ML IV ×2 (05:12→21:22)
[2020-11-12 05:36] LABS: Basophils % 0.1 %; Lymphocytes # 1.1 10^3/uL (0.8-4.8); Lymphocytes % 10.2 %; Mean Corpuscular HGB Conc 33.3 g/dL (30.0-36.0); Mean Corpuscular Hemoglobin 31.3 pg (28.0-34.0); Mean Corpuscular Volume 93.8 fL (81-99); Mean Platelet Volume 9.9 fL (7.4-10.4); Monocytes # 0.4 10^3/uL (0.2-0.9); Monocytes % 3.5 %; Neutrophils # 8.76 10^3/uL (1.8-7.7); Neutrophils % 85.4 %; Nucleated Red Blood Cells % 0 %; Platelet Count 269 10^3/cmm (130-400); Red Blood Count 3.84 10^6/uL (4.1-5.3); White Blood Count 10.3 10^3/uL (4.0-10.0)
[2020-11-12 05:50] LABS: Alanine Aminotransferase 26 U/L (0-33); Albumin Level 3.8 g/dL (3.5-5.2); Alkaline Phosphatase 58 IU/L (35-105); Anion Gap 11.9 (5-19); Aspartate Amino Transferase 18 U/L (0-32); Blood Urea Nitrogen 11 mg/dL (6-20); Calcium 8.4 mg/dL (8.5-10.5); Carbon Dioxide 24 mmol/L (22-29); Chloride 105 mmol/L (98-107); Globulin 2.3 g/dL (1.3-4.6); Glomerular Filtration Rate 112.5 mL/min (90-130); Glucose 137 mg/dL (65-115); Osmolality Calculated 286 mOsm/kg (285-295); Potassium 3.9 mmol/L (3.5-5.1); Sodium 137 mmol/L (136-145); Total Bilirubin 0.2 mg/dL (0.15-1.2); Total Protein 6.1 g/dL (6.6-8.7)
--- NOTE | 2020-11-12 07:06 | PC.NURSE ---
Shift Summary pt did well throughout the night. no complaints of pain to right eye. pt had some trouble sleeping for which she received Benadryl.
[2020-11-12 07:31] VITALS: BP 150/81; PULSE 50; RESP 16; TEMP 36.5; O2SAT 92
[2020-11-12] MEDS: famotidine 20 mg Tablet PO (08:55)
[2020-11-12 11:43] VITALS: BP 124/80; PULSE 50; RESP 14; TEMP 36.6; O2SAT 96
[2020-11-12 11:59] LABS: Vancomycin Trough 17.8 ug/mL (10-15)
[2020-11-12] MEDS: enoxaparin 40 mg/0.4 mL Syringe SUBCUT (15:41)
[2020-11-12 16:00] VITALS: BP 125/85; PULSE 50; RESP 16; TEMP 36.9; O2SAT 97
[2020-11-12 20:00] VITALS: PULSE 57; RESP 16; TEMP 36.4; O2SAT 95
[2020-11-12] MEDS: diphenhydrAMINE 50 mg Capsule PO (21:26)
[2020-11-12] MEDS: famotidine 20 mg/2 mL INJ IVP (22:51)
[2020-11-13] VITALS: BP 129/84; PULSE 50; RESP 16; TEMP 36.5; O2SAT 96
[2020-11-13] MEDS: piperacillin-tazobactam 4.5 GM in sodium chloride 0.9% (plus) 50 ML IV ×3 (00:39→13:29)
[2020-11-13 04:00] VITALS: BP 122/85; PULSE 59; RESP 16; TEMP 36.6; O2SAT 95
[2020-11-13] MEDS: vancomycin 1,500 MG/300 ML PIGGYBACK 200 MG IV ×2 (04:07→11:31)
--- NOTE | 2020-11-13 04:44 | PC.NURSE ---
shift note pt rested well this shift, dependent edema to left arm, right eye swelling decreased significantly, no drainage, pt able to open eyes and pupils assessed
[2020-11-13 07:57] VITALS: BP 129/83; PULSE 42; RESP 15; TEMP 36.7; O2SAT 97
[2020-11-13 08:00] VITALS: BP 129/83; PULSE 42; RESP 15; TEMP 36.7; O2SAT 97
[2020-11-13] MEDS: famotidine 20 mg/2 mL INJ IVP (08:42)
[2020-11-13] MEDS: fexofenadine 60 mg Tablet 180 MG PO (08:42)
[2020-11-13 11:11] VITALS: BP 133/78; PULSE 52; RESP 15; TEMP 36.8; O2SAT 97
[2020-11-13 15:24] VITALS: BP 133/78; PULSE 52; RESP 15; TEMP 36.8; O2SAT 97
--- NOTE | 2020-11-14 18:44 | P.DS_ITS ---
Discharge Providers Date of Admission: 11/09/20 15:41 Date of Discharge: November 14, 2020 Attending Provider at Admission: Jacquelyn Amaya Attending Provider at Discharge: Tapan Mart DO Diagnoses at Discharge Discharge Diagnosis (1) Preseptal cellulitis of right eye: Status: Acute Reason for Visit Reason for Visit: r eye swelling/seen here yesterday Hospital Course Hospital Course Patient admitted for right facial severe cellulitis. Imaging revealed this was preseptal with no involvement of the eye. Was given broad-spectrum antibiotics and IV steroids and other medications for allergic reaction. Improvement was somewhat slow. Once we added ice pack treatment and change the Pepcid to IV as well as change the antihistamine to Landy from Claritin she greatly improved overnight with the ability to open her eyes. She remained hospitalized for 1 more day to allow further treatment with IV Pepcid as well as decreasing the Solu-Medrol. The following morning she had even and more improved eye opening less pain less edema. 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 Physical Exam Narrative: EXAM NARRATIVE: obese young women NAD right eye swollen with bruise under right eye. This area had drained a bit but the skin is now intact. He pupil is visible with eye opening. NO slera involvement. Vision is intact . RRR without murmur L clear with w/r/r A soft nt/nd nl BS, obese E no edema Discharge Data Data Completed and Pending: Completed Studies During Hospitalization Category Date Time Status CT facial bones w con [id number] Urgent Cat Scan 11/09/20 11:04 Completed Vitals: Last Vital Signs Temp 98.3 F 11/13/20 15:24 Pulse 52 L 11/13/20 15:24 Resp 15 11/13/20 15:24 BP 133/78 11/13/20 15:24 Pulse Ox 97 11/13/20 15:24 Discharge Plan Discharge Patient Disposition: Home Condition: Stable Prescriptions: New diphenhydramine HCl 50 mg Capsule 50 mg PO BEDTIME Qty: 30 RF: 0 fexofenadine 60 mg Tablet 180 mg PO DAILY Qty: 30 RF: 0 diphenhydramine HCl 25 mg Capsule 25 mg PO Q6H PRN (Reason: Itching) Qty: 30 RF: 0 Pepcid 20 mg tablet 20 mg PO BID Qty: 60 RF: 0 prednisone 20 mg tablet 20 mg PO DAILY Qty: 5 RF: 0 Augmentin 875-125 mg tablet 1 tab PO BID Qty: 10 RF: 0 Bactrim DS 800-160 mg tablet 1 tab PO BID Qty: 10 RF: 0 Discharge Orders: Discharge Order (Routine); Ordered 11/13/20 Ordered By: Tapan Mart Referrals: Alejandra Jameson FNP [Nurse Practitioner] - 11/19/20 2:00 pm (You have an appointment to establish primary care with BUZZ Gonzales on 11/19/20 at 2:00. ) Discharge Diet: Usual diet Discharge Activity: Increase activity as tolerated and Return to work/school after cleared by PCP/Specialist Patient Instructions: Sulfamethoxazole/Trimethoprim (By mouth), Antihistamine (By mouth), Famotidine (By mouth), Prednisone (By mouth), Diphenhydramine (By mouth), Amoxicillin/Clavulanate Potassium (By mouth), Fexofenadine (By mouth), Opioid Safety Discharge Attestations Time Spent in Discharge Care*: greater than 30 min Specific Discharge Activities: educating patient, discussing with manager case management/social workers/dc planners and documenting/other paperwork Quality Metrics Clinical Quality Measures During this hospital stay, did patient experience: None Coding Level of Care Code Acute [facility] DC note Diagnoses Preseptal cellulitis of right eye L03.213
== END 2020-11-13 15:25 | disposition home or self-care (01) | DRG 603 ==
LOC: ER 14:04 → MEDSURG 16:54
PROVIDERS: Admitting Provider Hospitalist; Emergency Provider Physician Assistant; Visit Provider Internal Medicine
DX: L03.213 Periorbital cellulitis (principal); Z68.41 Body mass index [BMI] 40.0-44.9, adult; E66.9 Obesity, unspecified
CPT/HCPCS: 36415; 70487; 80053; 80202; 83605; 83735; 84145; 84703; 85025; 85651; 86140; 87040; 96365; 96367; 96372; 99285; J0696; J1650; J2543; J2920; J3370; J3490; J7030; J7050; Q0163; Q9967

== ENCOUNTER 2021-03-15 09:35 | Emergency (ER) | payer SELFPAY ==
[2021-03-15 09:59] VITALS: BP 122/76; PULSE 85; RESP 18; TEMP 36.8; O2SAT 99; BMI 43.5
[2021-03-15 10:15] VITALS: BP 122/76; PULSE 74; RESP 18; TEMP 36.8; O2SAT 94
--- NOTE | 2021-03-15 10:31 | ED_ITS ---
HPI - Nausea/Vomiting/Diarrhea General: Chief complaint: Nausea/Vomiting/Diarrhea Stated complaint: Diarrhea, Indigestion, Nausea Time Seen by Provider: 03/15/21 09:48 History of Present Illness: HPI Narrative: Patient complains about diarrhea the last few days. Also has had loose stools for the last year. Has had a 70 pound weight gain last year. Patient had her gallbladder out 13 years ago. Patient complains about dumping syndrome since weight gain. MD elicited complaint: diarrhea Pertinent past history: other (Diarrhea and gallbladder removal) Onset (ago): week(s) Description of diarrhea: lose Associated nausea: No Associated abdominal pain: No Location of pain: None Severity: mild Associated symtoms: Denies anxiety, change in vision, chest pain, headache(s) or nausea Review of Systems Const: Denies: fever(s), chills or body aches Eyes: Denies: change in vision or blurry vision ENMT: Denies: throat pain or nasal congestion Card: Denies: chest pain or dyspnea on exertion Resp: Denies: dyspnea, productive cough or non-productive cough GI: Reports: heartburn and diarrhea; Denies: nausea Musc: Denies: extremity pain Skin/Breast: Denies: rash Neuro: Denies: headache(s) Psych: Denies: anxiety or depression Zaki/Lymph: Denies: easy bruising PFSH ED PFSH: Medical History (Updated 03/15/21 @ 10:34 by BUZZ Bailey) Cellulitis of face Social History (Updated 11/09/20 @ 17:44 by Jacquelyn Amaya MD) Smoking and tobacco status: never smoked Alcohol intake: never Female Reproductive History: Date of last menstrual period: 02/20/21 Physical Exam Const: COMMON NORMALS: no acute distress, average body habitus and patient oriented x3 HENMT: COMMON NORMALS: normocephalic HEAD & SCALP: normal to inspection and normocephalic FACE & SINUS: normal facial exam Eye: COMMON NORMALS: conjunctivae normal GENERAL EYE: appearance normal, both eyes and all related structures CONJUNCTIVA: Yes conjunctivae normal Neck/C-Spine: COMMON NORMALS: no JVD Chest: COMMONS NORMALS: normal inspection of the chest Resp: COMMON NORMALS: normal respiratory effort and clear to auscultation bilaterally AUSCULTATION: clear to auscultation bilaterally Cardio: COMMON NORMALS: no JVD, regular rate and regular rhythm RATE: regu lar rate RHYTHM: regular rhythm GI: COMMON NORMALS: Normal to inspection, nondistended, normoactive bowel sounds present Extremity: COMMON NORMALS: normal to inspection and full ROM Neuro: COMMON NORMALS: patient oriented x3 Course Vital Signs: Vital signs: Vital Signs Temperature 98.6 F 03/15/21 10:43 Pulse Rate 64 03/15/21 10:43 Respiratory Rate 17 03/15/21 10:43 Blood Pressure 108/71 03/15/21 10:43 Pulse Oximetry 96 03/15/21 10:43 MDM - Nausea/Vomiting/Diarrhea MDM Narrative: Medical decision making narrative: Patient most likely has du mping syndrome. Also obesity is contributed to her increase in diarrhea along with stress. Patient does take a reflux medicine on a daily basis which prior leads more to undissolved stool. Patient will get established with primary care provider and discuss options diet and medications. Patient agreeable to plan. Discharge Plan Discharge Patient Disposition: Home Clinical Impression: Dumping syndrome Diarrhea Qualifiers: Diarrhea type: unspecified type Qualified Code(s): R19.7 - Diarrhea, unspecified Condition: Stable Prescriptions: New Lomotil 2.5-0.025 mg tablet 1 tab PO TID PRN (Reason: diarrhea) Qty: 7 RF: 0 No Action diphenhydramine HCl 50 mg Capsule 50 mg PO BEDTIME Qty: 30 RF: 0 fexofenadine 60 mg Tablet 180 mg PO DAILY Qty: 30 RF: 0 diphenhydramine HCl 25 mg Capsule 25 mg PO Q6H PRN (Reason: Itching) Qty: 30 RF: 0 Pepcid 20 mg tablet 20 mg PO BID Qty: 60 RF: 0 prednisone 20 mg tablet 20 mg PO DAILY Qty: 5 RF: 0 Augmentin 875-125 mg tablet 1 tab PO BID Qty: 10 RF: 0 Bactrim DS 800-160 mg tablet 1 tab PO BID Qty: 10 RF: 0 Discharge Orders: Discharge ED (Routine); Ordered 03/15/21 Ordered By: Luis Alfredo Villela Discharge Diet: As Directed Discharge Activity: Resume usual activity Patient Instructions: Diarrhea - Adult Activity Restrictions/Additional Instructions: Follow-up with medical provider as directed. Take medications as prescribed. Return to the ER or your medical provider if condition worsens. Please read and understand discharge instructions. If any questions ask please. Establish local provider here when [facility]. New patients are been accepted at [facility]. Keep a diary of the foods that you eat that cause diarrhea in 10 to 15 minutes after eating. Stay away from these foods. Coding Level of Care Code ED Foreign Law Consultant for Chg Fwd Exam Comprehensive
[2021-03-15] MEDS: diphenoxylate/atropine Tablet 1 TAB PO (10:37)
[2021-03-15 10:43] VITALS: BP 108/71; PULSE 64; RESP 17; TEMP 37; O2SAT 96
== END 2021-03-15 10:45 | disposition home or self-care (01) ==
PROVIDERS: Emergency Provider Nurse Practitioner Family
DX: R19.7 Diarrhea, unspecified (principal); K31.89 Other diseases of stomach and duodenum
CPT/HCPCS: 99282

== ENCOUNTER → 2021-07-18 12:51 | Outpatient (BNVA) | payer SELFPAY | PROVIDERS: Visit Provider Registered Nurse Neonatal Intensive Care | DX: S99.921A Unspecified injury of right foot, initial encounter (principal); X58.XXXA Exposure to other specified factors, initial encounter | CPT/HCPCS: 73630 ==

== ENCOUNTER 2022-11-28 20:22 | Emergency (ER) | payer MEDICAID, SELFPAY ==
[2022-11-28 20:46] VITALS: BP 131/86; PULSE 73; RESP 16; TEMP 36.7; O2SAT 98; BMI 37.1
--- NOTE | 2022-11-28 20:54 | XRR_ITS ---
PROCEDURE INFORMATION: Exam: XR Right Ankle Exam date and time: 11/28/2022 9:23 PM Age: 37 years old Clinical indication: Injury or trauma; Fall; Sprain or strain; Ankle; Right; Additional info: Fall pain TECHNIQUE: Imaging protocol: Radiologic exam of the right ankle. Views: 3 or more views. COMPARISON: No relevant prior studies available. FINDINGS: Bones/joints: Oblique fracture of the distal shaft of the fibula. Avulsion fracture of the tip of the medial malleolus. Fracture of the posterior aspect of the distal tibia demonstrated on the lateral view. This fracture extends to the plafond. Subtle widening of the medial ankle joint space suspected. Soft tissues: Unremarkable. XR/XR ankle RT min 3V* [id number] IMPRESSION: Trimalleolar fracture of the right ankle, as above.
--- NOTE | 2022-11-28 21:21 | ED_ITS ---
HPI - Extremity Problem General: Chief complaint: Extremity Injury, Lower Stated complaint: Ankle injury Time Seen by Provider: 11/28/22 21:21 History of Present Illness: 37-year-old female was walking outside in the yard when she slipped in the mud causing her to twist her ankle. Patient reports feeling a pop in her ankle while injuring it. Patient denies any chronic medical problems or distress. Patient appears nontoxic. Mild swelling is noted to the right ankle. Strong pe terri pulses noted. Sensation is intact. Review of Systems General: Reports: 10 or more systems reviewed and unremarkable except in HPI and below Musc: Reports: extremity pain and extremity swelling [facility] ED PFSH: Medical History (Updated 11/28/22 @ 21:58 by BUZZ Mcdowell) Cellulitis of face Social History (Updated 11/09/20 @ 17:44 by Jacquelyn Amaya MD) Smoking and tobacco status: never smoked Alcohol intake: never Substance/Drug Use: never Female Reproductive History: Date of last menstrual period: 11/07/22 Physical Exam Const: COMMON NORMALS: alert HENMT: COMMON NORMALS: normocephalic HEAD & SCALP: normocephalic Neck/C-Spine: COMMON NORMALS: full ROM Resp: COMMON NORMALS: normal respiratory effort and clear to auscultation bilaterally AUSCULTATION: clear to auscultation bilaterally Cardio: COMMON NORMALS: regular rate RATE: regular rate Back/Pelvis: COMMON NORMALS: thoracic and lumbar spine normal to inspection Extremity: RIGHT LOWER EXTREMITY: Yes foot & digits (Swelling is noted with bilateral pain and tenderness) Right ankle: Yes inspection, Yes palpation and No ROM Neuro: SENSORIUM/ORIENTATION: Yes alert Skin: COMMON NORMALS: turgor normal GENERAL SKIN EXAM: turgor normal Course Vital Signs: Vital signs: Vital Signs Temperature 98.0 F 11/28/22 22:58 Pulse Rate 73 11/28/22 22:58 Respiratory Rate 16 11/28/22 22:58 Blood Pressure 131/86 11/28/22 22:58 Pulse Oximetry 98 11/28/22 22:58 Oxygen Delivery Me thod Room Air 11/28/22 20:46 MDM - Extremity (Nontraumatic) Medical Decision Making 37-year-old female comes in today for injury to the right ankle. Patient had slipped in the mud causing her to twist her ankle forward and injuring it. Distal pulses are intact. Prompt capillary refill. Swelling is noted bilaterally to ankle. Differential diagnosis includes sprain, fracture, dislocation. X-ray noted trimalleolar fracture. Reviewed x-ray with Dr. Crescencio Mcpherson, orthopedist on-call. He recommended splinting the ankle in a posterior splint with stirrup splint for some extra support. Patient was placed nonweightbearing and crutches. Patient was written for a prescription for hydrocodone. Patient should follow-up with orthopedist office. Patient reported understanding of care plan. Case management was requested to assist with follow-up appointment. Lab Data Radiology Impressions Ankle X-Ray 11/28/22 20:54 IMPRESSION: Trimalleolar fracture of the right ankle, as above. Discharge Plan Discharge Patient Disposition: Home Clinical Impression: Ankle fracture Qualifiers: Encounter type: initial encounter Fracture type: closed Laterality: right Qualified Code(s): S82.891A - Other fracture of right lower leg, initial encounter for closed fracture Condition: Stable Prescriptions: New hydrocodone-acetaminophen 5-325 mg tablet 1 tab PO Q6H PRN (Reason: pain (scale score 7-10)) Qty: 12 0RF Discharge Orders: Discharge ED (Routine); Ordered 11/28/22 Ordered By: Harlan Paz Discharge Diet: Usual diet Discharge Activity: Increase activity as tolerated Patient Instructions: Ankle Fracture (ED), Opioid Safety Activity Restrictions/Additional Instructions: Home and rest. Keep splint clean and dry. Elevate foot is much as possible. Use acetaminophen and/or ibuprofen as needed to control pain. Use hydrocodone for severe pain. Use ice packs for further pain relief. Follow-up with primary care as needed. Case management will contact you regarding follow-up appointment with orthopedist office. No weightbearing to the extremity. Return to emergency department for new concerns. Coding Level of Care Code ED Dining Room Hostess for Emilie Michelle
[2022-11-28] MEDS: HYDROcodone-acetaminophen 10-325 mg Tablet 1 TAB PO (21:57)
[2022-11-28 22:58] VITALS: BP 131/86; PULSE 73; RESP 16; TEMP 36.7; O2SAT 98
--- NOTE | 2022-11-30 09:54 | PC.SOCIAL ---
Addendum entered by Ann-Marie Villanueva 12/09/22 15:06: Patient had a follow up appointment scheduled with ortho - patient did attend appointment. Original Note: Ortho Referral Referral to ortho at this time. Clinic to contact patient with appt date/time.
--- NOTE | 2022-12-02 12:52 | DCPLANNER ---
Addendum entered by Ann-Marie Villanueva 12/16/22 12:44: Patient had an appointment scheduled for a CT of right ankle - patient did attend appointment. Original Note: hotel assistant manager had message to schedule an outpatient CT of right ankle. hotel assistant manager faxed signed order to centralized scheduling, who will call patient with appointment information.
== END 2022-11-28 22:59 | disposition home or self-care (01) ==
PROVIDERS: Emergency Provider Nurse Practitioner Family
DX: S82.851A Displaced trimalleolar fracture of right lower leg, initial encounter for closed fracture (principal); X50.1XXA Overexertion from prolonged static or awkward postures, initial encounter; Y93.89 Activity, other specified; Y92.9 Unspecified place or not applicable
CPT/HCPCS: 29515; 73610; 99283; E0114

== ENCOUNTER 2022-12-08 16:09 | Outpatient (CLI) | payer MEDICAID, SELFPAY ==
--- NOTE | 2022-12-08 16:20 | CTR_ITS ---
PROCEDURE INFORMATION: Exam: CT Right Lower Extremity Without Contrast, Ankle Exam date and time: 12/08/2022 4:22 PM Age: 37 years old Clinical indication: Injury or trauma and condition or disease; Fall; Other: Trimalleolar ankle fracture; Blunt trauma; Right; Injury date: 11/28/22; Additional info: Trimalleolar ankle fracture, trimalleolar ankle fracture *urgent*, patient scheduled for surgery 12/16 TECHNIQUE: Imaging protocol: CT of the right lower extremity without contrast was performed. Exam focused on the ankle. Radiation optimization: All CT scans at this facility use at least one of these dose optimization techniques: automated exposure control; mA and/or kV adjustment per patient size (includes targeted exams where dose is matched to clinical indication); or iterative reconstruction. REPORTING DATA: Count of CT and Cardiac NM exams in prior 12 months: This patient has received 0 known CTs and 0 known cardiac nuclear medicine studies in the 12 months prior to the current study. COMPARISON: CR (LOW EXM, ) 11/28/2022 9:23 PM RADIATION DOSE METRICS: Total DLP (mGy-cm): 131.64 FINDINGS: Bones/joints: Small ankle joint hemarthrosis. Comminuted posteriorly displaced fracture in the distal diaphysis of the fibula, proximal to the ankle joint. Oblique displaced fracture through the posterior and central aspect of the medial malleolus. Large coronal E oriented comminuted fracture through the posterior malleolus of the distal tibia with 4 mm step-off along the articular surface. Minimally displaced hairline fracture in the base of the 1st metatarsal. Soft tissues: Subcutaneous soft tissue edema or hemorrhage in the anterior, medial, and lateral ankle. No organized hematoma. CT/CT ankle RT wo con* [id number] IMPRESSION: 1. Comminuted displaced trimalleolar right ankle fracture. 2. Minimally displaced hairline fracture in the base of the 1st metatarsal.
== END 2022-12-08 16:10 | disposition home or self-care (01) ==
LOC: RAD 16:11
PROVIDERS: Visit Provider Nurse Practitioner Family
DX: S82.851A Displaced trimalleolar fracture of right lower leg, initial encounter for closed fracture (principal); S92.311A Displaced fracture of first metatarsal bone, right foot, initial encounter for closed fracture; W19.XXXA Unspecified fall, initial encounter
CPT/HCPCS: 73700

== ENCOUNTER 2022-12-16 05:52 | Day surgery (SDC) | payer MEDICAID, SELFPAY ==
[2022-12-15 16:18] VITALS: BMI 37.1
[2022-12-16] VITALS (11 sets, daily range): BP systolic 104–131; BP diastolic 66–83; PULSE 51–86; RESP 16–18; TEMP 36.2–37.1; O2SAT 94–100
[2022-12-16] MEDS: gabapentin 300 mg Capsule PO (06:41)
[2022-12-16] MEDS: sodium chloride 0.9% 1,000 ML 30 ML IV (06:42)
[2022-12-16] MEDS: acetaminophen 1,000 MG/100 ML PIGGYBACK 400 MG IV (06:43)
[2022-12-16] MEDS: ceFAZolin 2,000 MG in sodium chloride 0.9% (plus) 50 ML 100 MG IV (06:56)
--- NOTE | 2022-12-16 06:57 | W.PM.OPSUD ---
Surgery/Procedure H&P Update DATE OF PROCEDURE: December 16, 2022 DATE H&P PERFORMED: 12/03/22 CHANGES TO PREVIOUS DOCUMENTATION: No changes PREOP DIAGNOSIS: Right ankle trimalleolar ankle fracture PLANNED PROCEDURE: Operation Date: 12/16/22 07:00 Proposed Procedures p Open reduction internal fixation right trimalleolar ankle fracture CPT 89015, S82.851A(Right) - Yuriy Zafar DPM
--- NOTE | 2022-12-16 07:23 | ANES.PREANE2 ---
Pre-Anesthetic Assessment Height/Weight: Height 1.68 m Weight 104.326 kg Temp Pulse Resp BP Pulse Ox O2 Del Method 98.8 F 78 18 108/83 97 Room Air 12/16/22 06:09 12/16/22 06:09 12/16/22 06:09 12/16/22 06:09 12/16/22 06:09 12/16/22 06:15 Preop Diagnosis: Right ankle trimalleolar ankle fracture Operation Date: 12/16/22 07:00 Proposed Procedures p Open reduction internal fixation right trimalleolar ankle fracture CPT 11444, S82.851A(Right) - Yuriy Zafar DPM Familial anesthetic complications: none Was Beta Magdalene taken within 24 hours: N/A Was Clonidine taken within 24 hours: N/A Last intake: Intake Last Liquid Date 12/15/22 Last Liquid Time 22:00 Last Solid Date 12/15/22 Last Solid Time 18:00 Social No alcohol and No tobacco Exam alert, oriented x 3, clear to auscultation bilaterally and regular rate & rhythm Airway Submandibular: within normal limits Cervical ROM: within normal limits Mallampati: Class II Dentition: full Metabolic Morbid Obesity Anesthetic Plan ASA status: 2 Anesthesia: General and Regional (specify below) (Right pop blk) Medications/Allergies Home Medications Medication Instructions Recorded Confirmed Last Taken Type hydrocodone 10 mg-acetaminophen 1 tab PO Q6H PRN pain #28 tabs 12/16/22 Unknown Rx 325 mg tablet Allergies Allergy/AdvReac Type Severity Reaction Status Date / Time meperidine [From Demerol] Allergy ADR-Nausea Verified 12/15/22 16:17 promethazine [From Phenergan] Allergy ADR-Halluci Verified 12/15/22 16:17 nating Current Medications Generic Name Dose Route Start Last Admin Trade Name Freq PRN Reason Stop Dose Admin Sodium Chloride 1,000 mls @ 30 mls/hr 12/16/22 06:00 12/16/22 06:42 Sodium Chloride 0.9% IV 12/17/22 05:59 30 mls/hr .Q24H [place] Administration PFSH Anesthesia Medical History (Updated 12/07/22 @ 21:37 by Yuriy Zafar DPM) Cellulitis of face Social History (Updated 11/09/20 @ 17:44 by Jacquelyn Amaya MD) Smoking and tobacco status: never smoked Alcohol intake: never Substance/Drug Use: never Data Anesthesia Cardiac Studies: No Data to Display Anesthesia Procedures Nerve Block Nerve Block 1: Main Anesthesia: general anesthesia Time Out Performed: Yes Consent: requested by attending/covering physician, from patient, risks and benefits reviewed and patient agrees to proceed Nerve block location: popliteal (right) Anesthesia monitors applied: pulse oximetry, EKG, BP cuff and oxygen Nerve block position: supine Anesthetic Used: ropivicaine 0.5% Amount of anesthesia used (mL): 30 Ultrasound used to: recognize landmarks Nerve Stimulator Used?: No Interscalene/Femoral BLK: 4 stimuplex 21 g needle used for position and inplane approach Injection: neg aspiration of heme Patient Tolerated Procedure: well
--- NOTE | 2022-12-16 10:24 | XR_ITS ---
WS: [id number] Exam: XR ankle RT min 3V* [id number] Date/Time of Exam: 12/16/2022 10:24 AM Reason For Exam: Post op Comparison 11/28/2022. There is plate and screw fixation involving fractures of the medial malleolus and posterior tibial sh elf. There is also plate and screw fixation involving a fracture of the lower fibula. Alignment appea rs to be satisfactory for healing. Surgical skin clips noted both medial and lateral. A cast stabiliz es the ankle and foot. XR/XR ankle RT min 3V* [id number] IMPRESSION: 1. Internal fixation involving a trimalleolar fracture of the right ankle. Alig nment appears satisfactory for healing.
[2022-12-16] MEDS: HYDROcodone-acetaminophen 10-325 mg Tablet 1 TAB PO (11:09)
[2022-12-16 11:15] LABS: OR HCG Qualitative Urine Negative (Negative)
--- NOTE | 2022-12-16 14:53 | ANE.PACU2 ---
Inpatient post-anesthesia follow up: Airway intact: Yes Vital signs: Temperature 97.4 F Pulse Rate 76 Respiratory Rate 18 Blood Pressure 108/82 Pulse Oximetry 97 Oxygen Delivery Me thod Room Air Oxygen Flow Rate 6 Fraction of Inspir ed Oxygen Hydration adequate: Yes Nausea and vomiting: No Pain level: 2 Mental status: Baseline
--- NOTE | 2022-12-16 20:00 | PM.OP ---
Operative Report Date of procedure: November Pre-op diagnosis: Preop Diagnosis Right ankle trimalleolar ankle fracture Post-op diagnosis: Same Post-op findings: Displaced trimalleolar ankle fracture to the right ankle. Stable syndesmosis upon repair Procedure done: Open reduction internal fixation right trimalleolar ankle fracture CPT 15643 Implants: one 7 hole one third tubular plate and one 6 hole one third tubular plate with 3.5 locking and nonlocking screws. One 7 hole Y plate with 2.7 locking and nonlocking screws. All from [employer] Pathology: None Surgeon: Eddie Alfaro.P.M. Estimated blood loss: Less than 20 cc 120 minutes Complications: None Findings: See above Procedure: Patient is a 37-year-old female that has a history of right trimalleolar ankle fracture. The extent of the injury necessitates open reduction internal fixation due to the inherent instability of the fracture pattern. A lengthy discussion regarding the procedure, including risks and complications has been had with the patient and is noted in the recent clinic note. Written and verbal consent have been obtained. All patient questions have been answered to the patient?s satisfaction. No written or verbal guarantees have been given or implied. The patient has been NPO since midnight. The history has been reviewed and the history and physical is current. The signed consent was confirmed and placed in the patient chart. Patient imaging has been reviewed and is consistent with the diagnosis. Under mild sedation, the patient was brought into the operating room and placed on the table in the prone position. IV antibiotics were given by the anesthesia team as preoperative surgical prophylaxis. General sedation was then performed by the anesthesiateam. The patient received a popliteal block in the preoperative area by the anesthesia team. A pneumatic tourniquet was then placed about the right thigh. The operative extremity was then prepped and draped in the usual fashion. The extremity was then elevated and exsanguinated before the tourniquet was inflated to 325 mmHg. After inflation, the following procedure was then performed. Attention was directed to the posterior aspect of the right ankle where a 12 cm incision was made in between the Achilles and the posterior border of the fibula. This incision was made with a #15 blade. Dissection was carried down through subcutaneous and superficial fascia to the level of the crural fascia. This was incised to expose the peroneal muscle bellies. These were retracted out of the operative field and deep dissection was carried out down to the level of the flexor hallucis longus muscle belly. Careful dissection was carried out to remove this from the lateral aspect of the incision reflected medially to expose the underlying posterior malleolus. The posterior malleolus fragment was visualized and using a combination of curette and dental pick the hematoma was removed from the fracture site. It was then mobilized and reduced to the appropriate position. It was then temporarily fixated before a one third tubular 6-hole plate was positioned in buttress fashion over the fragment. The holes of the plate were then drilled and filled in standard fashion using a combination of locking and nonlocking screws. Attention was then directed to the posterior aspect of the fibula where the comminuted fibular fracture was visualized. Hematoma was removed at the fracture site using a combination of curette, rongeur and dental pick. A one third tubular plate, 7 hole was then applied to the posterior aspect of the fibula and a buttress/bridging fashion. The holes of the plate were then drilled and filled in standard fashion. Good reduction of the ankle was noted and good positioning of the orthopedic hardware was also noted. Attention was then directed to the medial aspect of the ankle where an 8 cm incision was made over the medial malleolus. Dissection was carried down through subcutaneous and superficial fascia to the level of the medial malleolar fracture. The fracture was noted to be of the posterior colliculus of the medial malleolus. Hematoma at the fracture site was removed using a combination of dental pick and curette. The fragment was then anatomically reduced before being temporarily fixated. A 7 hole Y plate was then contoured and applied in buttress fashion over the medial malleolus before being filled with combination of locking and nonlocking screws. Good positioning of the ankle was noted. It was stressed under live fluoroscopy and the syndesmosis was noted to be stable. The incision sites were then irrigated with copious muscle sterile saline before attention was directed to closure. Deep tissue was closed with 2-0 Vicryl followed by subcuticular closure with 3-0 Vicryl and skin closure with skin alexei. The tourniquet was let down and good hyperemic response was noted to all digits of the right foot. The incision sites were dressed with Xeroform, 4 x 4 gauze, Kerlix before the leg was placed in a well-padded below the knee posterior splint. The patient tolerated the procedure and anesthesia well and without complication. The patient was transported from the operating room to the recovery room with vital signs stable and vascular status intact to all digits of the right foot. The patient was given both written and verbal instructions to remain strict nonweightbearing to the operative extremity, to keep dressings/splint clean, dry and intact and to take pain medication as directed. The patient will follow-up in the outpatient setting at their scheduled appointment. The patient was discharged with my personal number and was instructed to call if any questions or issues should arise. They were discharged home once anesthesia criteria was met.
== END 2022-12-16 11:42 | disposition home or self-care (01) ==
PROVIDERS: Anesthesiology; Visit Provider Podiatrist Foot & Ankle Surgery
PROC: (CPT 27822; principal; 2022-12-16 07:00)
DX: S82.851A Displaced trimalleolar fracture of right lower leg, initial encounter for closed fracture (principal); X58.XXXA Exposure to other specified factors, initial encounter
CPT/HCPCS: 27822; 73610; 76000; 81025; 84703; C1713; J0131; J0690; J1100; J1170; J1885; J2250; J2405; J2704; J2710; J2795; J3010; J3490; J7030

== ENCOUNTER → 2022-12-30 12:52 | Outpatient (BNVA) | payer MEDICAID, SELFPAY | PROVIDERS: Visit Provider Podiatrist Foot & Ankle Surgery | DX: S82.851A Displaced trimalleolar fracture of right lower leg, initial encounter for closed fracture; Z48.89 Encounter for other specified surgical aftercare; X58.XXXA Exposure to other specified factors, initial encounter | CPT/HCPCS: 73610 ==

== ENCOUNTER → 2023-01-13 15:22 | Outpatient (BNVA) | payer MEDICAID, SELFPAY | PROVIDERS: Visit Provider Podiatrist Foot & Ankle Surgery | DX: S82.851A Displaced trimalleolar fracture of right lower leg, initial encounter for closed fracture (principal); Z48.89 Encounter for other specified surgical aftercare; X58.XXXA Exposure to other specified factors, initial encounter | CPT/HCPCS: 73610 ==

== ENCOUNTER → 2023-01-25 14:35 | Outpatient (BNVA) | payer MEDICAID, SELFPAY | PROVIDERS: Visit Provider Podiatrist Foot & Ankle Surgery | DX: S82.851A Displaced trimalleolar fracture of right lower leg, initial encounter for closed fracture (principal); Z98.890 Other specified postprocedural states; X58.XXXA Exposure to other specified factors, initial encounter | CPT/HCPCS: 73610 ==

== ENCOUNTER → 2023-02-10 15:44 | Outpatient (BNVA) | payer MEDICAID, SELFPAY | PROVIDERS: Visit Provider Podiatrist Foot & Ankle Surgery | DX: S82.851A Displaced trimalleolar fracture of right lower leg, initial encounter for closed fracture (principal); Z98.890 Other specified postprocedural states; X58.XXXA Exposure to other specified factors, initial encounter | CPT/HCPCS: 73610 ==

== ENCOUNTER → 2023-02-24 13:46 | Outpatient (BNVA) | payer MEDICAID, SELFPAY | PROVIDERS: Visit Provider Podiatrist Foot & Ankle Surgery | DX: Z48.89 Encounter for other specified surgical aftercare; S82.851D Displaced trimalleolar fracture of right lower leg, subsequent encounter for closed fracture with routine healing; X58.XXXD Exposure to other specified factors, subsequent encounter | CPT/HCPCS: 73610 ==

== ENCOUNTER → 2023-06-25 09:50 | Outpatient (BNVA) | payer MEDICAID, SELFPAY | PROVIDERS: Visit Provider Podiatrist Foot & Ankle Surgery | DX: M79.671 Pain in right foot (principal); M72.2 Plantar fascial fibromatosis; Z98.890 Other specified postprocedural states | CPT/HCPCS: 73610 ==

== ENCOUNTER → 2025-05-01 11:15 | Outpatient (BNVA) | payer MEDICAID, SELFPAY | PROVIDERS: PCP Family Medicine; Visit Provider Podiatrist Foot & Ankle Surgery | DX: M25.571 Pain in right ankle and joints of right foot (principal); M72.2 Plantar fascial fibromatosis; Z98.890 Other specified postprocedural states; M19.071 Primary osteoarthritis, right ankle and foot | CPT/HCPCS: 73610 ==

== ENCOUNTER 2025-05-15 14:22 | Outpatient (CLI) | payer MEDICAID, SELFPAY ==
--- NOTE | 2025-05-15 14:30 | MR_ITS ---
WS: [id number] MRI RIGHT ANKLE WITHOUT CONTRAST. COMPARISON: Radiograph 05/01/[address] 12/08/2022 Multiplanar, multisequence imaging is performed without contrast. There is extensive hardware in the ankle. Plate and screw fixations involving the distal fibula and the tibia. This hardware is causing artifact limiting evaluation of the ankle. Evaluation of the distal tibia and fibula is limited by the extensive hardware. There is a small amount of edema in the posterior talar process. There is additional edema involving the posterior facet of the calcaneus. Edema extends into the mid body of the calcaneus and also into the posterior process. No fracture is identified. Small 5 mm subchondral cyst is noted in the calcaneus, deep to the subtalar joint. Visualized tarsal bones are normal. Talar dome is intact. No joint effusion. Normal Achilles tendon. No plantar fasciitis. Partial obscuration of the peroneal tendons due to the hardware. Distally the tendons are normal. The posterior tibialis tendon, flexor hallucis longus and flexor digitorum longus are intact. Anterior tibialis tendon is normal. There is some increased T2 signal in the anterior talofibular ligament. Increased T2 striations in the ATFL and there is surrounding fluid. Partial tear suspected. Posterior tibial fibular ligament is normal. There is a small amount of fluid along the posterior talofibular ligament. Within this fluid is a 7.4 mm low signal focus which was also present on the CT of 12/08/2022 and is probably part of the os trigonum. As visualized the deltoid ligament appears appropriate. There is some fluid along the medial plantar oblique band of the spring ligament suggesting a mild sprain. Bifurcate ligament is not well visualized. There is fluid along the expected location of the bifurcate ligament. MR/MR ankle RT wo con* [id number] IMPRESSION: 1. Status post distal tibia and fibula plate and screw fixation which is causi ng some artifact. 2. Marrow edema in the posterior talar process and also in the mid body of the calcaneus and the posterior facet. Suspect there is an impingement syndrome. N o acute fracture. 3. Partial tear versus sprain of the anterior talofibular ligament. There is i ncreased fluid surrounding the ligament. 4. Fluid adjacent to the medial plantar oblique band of the spring ligament co nsistent with a mild sprain. 5. Bifurcate ligament is not well visualized.
== END 2025-05-15 14:23 | disposition home or self-care (01) ==
LOC: RAD 14:27
PROVIDERS: PCP Family Medicine; Visit Provider Podiatrist Foot & Ankle Surgery
DX: M95.8 Other specified acquired deformities of musculoskeletal system (principal); Z96.89 Presence of other specified functional implants; M25.571 Pain in right ankle and joints of right foot; R93.6 Abnormal findings on diagnostic imaging of limbs; M24.271 Disorder of ligament, right ankle; M79.89 Other specified soft tissue disorders
CPT/HCPCS: 73721